=== PATIENT | female | born 1965 | race African-American/Black ===

== ENCOUNTER 2022-03-07 15:29 | Emergency (ER) | payer MEDICAID ==
[~2022-03-07] VITALS: Ht 162.6 cm; Wt 62.0 kg
[2022-03-07] MEDS ORDERED: VANCOMYCIN 1G PREMIX 200 ML IV SCH (17:15)
[2022-03-07] MEDS ORDERED: SODIUM CHLORIDE 0.9% 1,000 ML IV ONE (17:15)
[2022-03-07] MEDS ORDERED: KETOROLAC 15MG/ML VIAL IV ONE (17:15)
[2022-03-07] MEDS ORDERED: CEFEPIME 1,000 MG in DEXTROSE 5% WATER 50 ML IV SCH (17:15)
[2022-03-07 17:37] LABS: BASOPHILS % 0.7 % (0.0-2.0); HEMATOCRIT. 41.1 % (36.0-48.0); HEMOGLOBIN. 13.7 g/dL (12.0-16.0); LYMPHOCYTES % 7.4 % (20.0-50.0); MEAN CORPUSCULAR HEMOGLOBIN 30.7 pg (28.0-32.0); MEAN CORPUSCULAR VOLUME 91.8 fL (81.0-99.0); MEAN PLATELET VOLUME 7.5 fl (7.4-10.4); MONOCYTES % 7.4 % (2.0-8.0); NEUTROPHILS % 84.5 % (40.0-76.0); PLATELET 297 x1000/uL (130-400); RED BLOOD CELL COUNT 4.48 mill/uL (4.2-5.4); RED CELL DISTRIBUTION WIDTH 13.2 % (11.6-14.6)
[2022-03-07 17:46] LABS: CHLORIDE 95 mEq/L (98-107)
[2022-03-07] MEDS ORDERED: POTASSIUM CHLORIDE 20MEQ/PACKET PO NR (18:00)
[2022-03-07] MEDS ORDERED: IOHEXOL-300 100 ML BOTTLE ONE (20:10)
[2022-03-07] MEDS ORDERED: ACETAMINOPHEN 325MG TABLET PO ONE (22:45)
[2022-03-07] MEDS ORDERED: IBUP-2028 MT (23:00)
[2022-03-07] MEDS ORDERED: AMOX1TAB16 MT (23:00)
[2022-03-07 23:16] VITALS: BP 99/65
== END 2022-03-07 23:16 | disposition left against medical advice (07) ==
LOC: ER 15:29
DX: R05.9 Cough, unspecified (principal); R51.9 Headache, unspecified; J34.89 Other specified disorders of nose and nasal sinuses
CPT/HCPCS: 36415; 70491; 71045; 80053; 85025; 85651; 87040; 96365; 96368; 96375; 99285; J0692; J1885; J3370; J7030; J7060; Q9967

== ENCOUNTER 2023-09-09 23:19 | Emergency (ER) | payer MEDICAID ==
[~2023-09-09] VITALS: Ht 165.1 cm; Wt 73.0 kg
[~2023-09-09 23:19] MED LIST: AMOX1TAB16 MT; IBUP-2028 MT
[2023-09-10] VITALS: TEMP 98.3; O2SAT 97
[2023-09-10] MEDS ORDERED: ACETAMINOPHEN 325MG TABLET PO ONE (00:15)
[2023-09-10 00:57] LABS: BASOPHILS % 0.8 % (0.0-2.0); EOSINOPHILS % 2.6 % (0.0-5.0); HEMATOCRIT. 39.8 % (36.0-48.0); HEMOGLOBIN. 13.3 g/dL (12.0-16.0); LYMPHOCYTES % 21.5 % (20.0-50.0); MEAN CORPUSCULAR HEMOGLOBIN 31.3 pg (28.0-32.0); MEAN CORPUSCULAR HGB CONC 33.6 g/dL (31.0-37.0); MEAN CORPUSCULAR VOLUME 93.2 fL (81.0-99.0); MEAN PLATELET VOLUME 7.1 fl (7.4-10.4); MONOCYTES % 12.6 % (2.0-8.0); NEUTROPHILS % 62.5 % (40.0-76.0); PLATELET 301 x1000/uL (130-400); RED BLOOD CELL COUNT 4.27 mill/uL (4.2-5.4); RED CELL DISTRIBUTION WIDTH 13.5 % (11.6-14.6); WHITE BLOOD COUNT 6.2 x1000/uL (4.5-11.0)
[2023-09-10 01:00] LABS: CLARITY URINE CLEAR (CLEAR); COLOR URINE YELLOW (YELLOW); GLUCOSE URINE NEGATIVE (NEGATIVE); KETONES URINE NEGATIVE (NEGATIVE); LEUKOCYTE ESTERASE URINE 1+ (NEGATIVE); NITRITE URINE NEGATIVE (NEGATIVE); OCCULT BLOOD URINE NEGATIVE (NEGATIVE); PH URINE 5.5 (4.5-8.0); PROTEIN URINE NEGATIVE (NEGATIVE); SPECIFIC GRAVITY URINE 1.014 (1.005-1.030)
[2023-09-10 01:04] LABS: CHLORIDE 104 mEq/L (98-107); POTASSIUM 4.6 mEq/L (3.5-5.1); SODIUM 138 mEq/L (136-145)
[2023-09-10 01:05] LABS: CALCIUM 10.1 mg/dL (8.7-10.4); CARBON DIOXIDE 28 mEq/L (21-32)
[2023-09-10 01:10] LABS: CREATININE 0.9 mg/dL (0.6-1.0); GLUCOSE 94 mg/dL (70-105); UREA NITROGEN BLOOD 16 mg/dL (9-23)
[2023-09-10 01:11] LABS: ETHANOL BLOOD < 10 mg/dL (<10)
[2023-09-10 01:11] LABS: *AMPHETAMINES SCREEN URINE NEGATIVE (NEGATIVE); *BARBITURATES SCREEN URINE NEGATIVE (NEGATIVE); *BENZODIAZEPINES SCREEN URINE NEGATIVE (NEGATIVE); *COCAINE SCREEN URINE PRESUMPTIVE POSITIVE (NEGATIVE)
[2023-09-10 01:12] LABS: ALANINE AMINOTRANSFERASE 14 IU/L (10-49); ALBUMIN 4.5 g/dL (3.2-4.8); ASPARTATE AMINOTRANSFERASE 31 IU/L (<34); BILIRUBIN TOTAL 0.3 mg/dL (0.1-1.0); PROTEIN TOTAL 7.7 g/dL (6.0-8.3); TROPONIN I HIGH SENSITIVITY 5 ng/L (3.0-34)
[2023-09-10 01:12] LABS: CANNABINOID URINE SCREEN NEGATIVE (NEGATIVE); ECSTASY MDMA SCREEN URINE NEGATIVE (NEGATIVE); METHADONE URINE SCREEN NEGATIVE (NEGATIVE); OPIATES URINE SCREEN NEGATIVE (NEGATIVE); PHENCYCLIDINE URINE SCREEN NEGATIVE (NEGATIVE)
[2023-09-10 02:08] LABS: INR 0.9; PARTIAL THROMBOPLASTIN TIME 22.5 sec (23.4-31.0); PROTHROMBIN TIME 10.5 sec (9.6-11.0)
[2023-09-10] MEDS: ACETAMINOPHEN 325MG TABLET PO NR (02:08)
[2023-09-10] MEDS ORDERED: ACET-2708 MT (03:27)
[2023-09-10 03:41] VITALS: BP 166/98; PULSE 87; RESP 20
[2023-09-10 04:28] LABS: SQUAMOUS EPITHELIAL CELL URINE FEW /lpf (RARE/1+)
[2023-09-10 04:30] LABS: BACTERIA URINE 1+; RBC URINE 0-2 /hpf (0-2)
== END 2023-09-10 03:44 | disposition home or self-care (01) ==
LOC: ER 23:26
DX: R07.89 Other chest pain (principal); F14.10 Cocaine abuse, uncomplicated; F17.210 Nicotine dependence, cigarettes, uncomplicated; Z87.01 Personal history of pneumonia (recurrent); V49.59XA Passenger injured in collision with other motor vehicles in traffic accident, initial encounter; Y93.89 Activity, other specified; Y92.89 Other specified places as the place of occurrence of the external cause; Y99.8 Other external cause status
CPT/HCPCS: 36415; 71045; 93005; 99285; 80053; 80305; 81003; 80320; 83880; 85025; 85610; 85730; 84484; 71250; Z7610 ×2; G0480